=== PATIENT | female | born 1995 | race Caucasian/White ===

== ENCOUNTER → 2021-01-30 09:23 | Outpatient (CLI) | payer OTHER, SELFPAY ==
--- NOTE | 2021-01-30 09:24 | DI.US.S_ITS ---
PROCEDURE: US OB >= 14 WEEKS FETUS INDICATIONS: ANATOMY OUTSIDE/PRIOR DATING DATA: Last menstrual period (LMP): 09/13/20 . LMP-based estimated date of delivery (RELL): 06/20/21 . First dating scan (date and location): 01/30/21, current study . Estimated date of delivery (RELL) from first dating scan: 06/21/21 . TECHNIQUE: Real-time scanning was performed of the fetus, with image documentation and biometric measurements. Endovaginal scanning: Not performed COMPARISON: None. FINDINGS: General: A single living intrauterine gestation is present. Presentation: Vertex. Placenta: Placental position is anterior , without previa. Amniotic fluid index: 11.0 cm, normal range is 5-24 cm. heart rate: 133 beats per minute. Maternal cervical canal: 5.5 cm long. Normal lower limit is 2.5 cm. biometrics: Biparietal diameter: 4.4 cm, 19 weeks, two days Head circumference: 16.7 cm, 19 weeks, three days Abdominal circumference: 14.9 cm, 20 weeks, one day Femur length: 3.2 cm, 19 weeks, six days Estimated gestational age from initial scan: not applicable. Composite gestational age from present scan: 19 weeks, five days Estimated weight and percentile: 321 g, 49th percentile Measurement variability for biometric dating: +/- 7 days from 14 weeks to 15 weeks 6 days gestation, +/- 10 days from 16 weeks to 21 weeks 6 days gestation, +/- 2 weeks from 22 weeks to 27 weeks 6 days gestation, +/- 3 weeks for 28 weeks gestation or later. weight reference: 4500 g or EFW >90/95% is considered macrosomia or large for gestational age. EFW <10% is small for gestational age. EFW 5% or less is considered intra-uterine growth restriction. Anatomic survey: Neuro: Ventricles are non-dilated at less than 10 mm. Cisterna magna is normal at 3-11 mm. Cerebellum is normal in size and morphology. Nuchal skin fold: Normal at less than 6 mm between 14-21 weeks gestational age. Face: Nose and lips, facial profile are normal. Spine: No evidence for spina bifida. Heart: 4-chambered heart is present, with normal ventricular outflow tracts. Diaphragm: Diaphragm is intact. Stomach: Left-sided stomach is present. Kidneys: No hydronephrosis. Normal is less than 5 mm in 2nd trimester, less than 7 mm in 3rd trimester. Cord: 3-vessel cord has orthotopic insertion. Bladder: Normal in size. Extremities: All 4 extremities identified. IMPRESSION: 1. Single living intrauterine with composite gestational age in good agreement with the clinically assigned gestational age. 2. Symmetric growth and normal anatomy. Dictated by: Jocelyn Gray M.D. on 01/30/2021 at 14:14 Approved by: Jocelyn Gray M.D. on 01/30/2021 at 14:33
== END ==
PROVIDERS: Referring Provider Obstetrics & Gynecology; Visit Provider Obstetrics & Gynecology
DX: Z34.82 Encounter for supervision of other normal pregnancy, second trimester (principal)
CPT/HCPCS: 76811

== ENCOUNTER → 2021-03-09 07:49 | Outpatient (CLI) | payer OTHER, SELFPAY ==
[2021-03-09 10:21] LABS: Hematocrit 32.6 % (36-46); Hemoglobin 11.4 g/dL (12.0-16.0)
[2021-03-09 10:52] LABS: GTT (PREG) 1 Hour PP 50gm Dose 118 mg/dL (76-139)
== END ==
PROVIDERS: Referring Provider Obstetrics & Gynecology; Visit Provider Obstetrics & Gynecology
DX: Z34.82 Encounter for supervision of other normal pregnancy, second trimester (principal); Z3A.25 25 weeks gestation of pregnancy
CPT/HCPCS: 36415; 82950; 85014; 85018

== ENCOUNTER → 2021-05-24 10:56 | Outpatient (CLI) | payer OTHER, SELFPAY ==
[2021-05-25 17:17] LABS: Strep Grp B PCR NEG for Grp B Strep
== END ==
PROVIDERS: Referring Provider Obstetrics & Gynecology; Visit Provider Obstetrics & Gynecology
DX: Z34.83 Encounter for supervision of other normal pregnancy, third trimester (principal); Z3A.36 36 weeks gestation of pregnancy
CPT/HCPCS: 87653

== ENCOUNTER 2021-06-07 09:15 | Outpatient (CLI) | payer OTHER, SELFPAY | END 2021-06-07 09:55 | disposition home or self-care (01) | LOC: LABOR 09:42 → OB 06-12 07:31 | PROVIDERS: PCP Nurse Practitioner Family; Referring Provider Obstetrics & Gynecology; Visit Provider Obstetrics & Gynecology | DX: O36.8130 Decreased fetal movements, third trimester, not applicable or unspecified (principal); Z3A.38 38 weeks gestation of pregnancy | CPT/HCPCS: 59025; G0378; G0379 ==

== ENCOUNTER 2021-06-20 07:51 | Inpatient (IN) | payer OTHER, SELFPAY ==
[2021-06-20 09:10] LABS: COVID19 -Nasal RAPID Negative (Negative)
[2021-06-20 09:31] LABS: Add Manual Diff / Slide Review NO; Basophils Absolute Auto 0 /uL (0-100); Basophils Percent Auto 0.2 % (0-2); Eosinophils Absolute Auto 100 /uL (0-450); Eosinophils Percent Auto 0.7 % (2-4); Hematocrit 31.2 % (36-46); Hemoglobin 11.1 g/dL (12.0-16.0); Lymphocytes Absolute Auto 2100 /uL (1100-4500); Lymphocytes Percent Auto 18.5 % (25-40); Mean Corpuscular HGB Conc 35.6 % (30-36); Mean Corpuscular Hemoglobin 29.1 PG (26-34); Mean Corpuscular Volume 81.9 fL (80-100); Monocytes Absolute Auto 700 /uL (0-900); Monocytes Percent Auto 6.1 % (3-14); Neutrophils Absolute Auto 8600 /uL (1500-7000); Neutrophils Percent Auto 74.5 % (50-75); Platelet Count 237 X10^3/uL (150-400); Red Blood Cell Count 3.82 X10^6/uL (4.0-5.2); Red Cell Distribution Width 14.3 % (11.6-14.8); White Blood Cell Count 11.5 X10^3/uL (4.5-11.0)
[2021-06-20] MEDS: LACTATED RINGERS 1,000 ML 100 ML IV ×2 (09:34→15:34)
[2021-06-20] MEDS: OXYTOCIN PREMIX 30 UNIT/500 ML PLAST..BAG IV (09:38)
[2021-06-20 09:42] VITALS: BP 124/61
[2021-06-20 12:34] LABS: HIV 1 & 2 Ab/Ag 4th Gen Combo NEGATIVE (NEGATIVE)
--- NOTE | 2021-06-20 13:08 | PM.OBHP.1 ---
OB HPI Date/Time Date of admission: 06/20/21 Date Patient Seen: 06/20/21 Time Patient Seen: 09:00 History of Present Condition Chief complaint: INDUCTION : 2 Para: 1 Estimated Date of Delivery: 06/20/21 Estimated Gestational Age (weeks): 40 Narrative: Robson Taveras is a 26 year old female admitted for induction for family issues Indications Indication for induction OB: other (Family issues) History of Present care: good care, initiated at week # (9), number of visits (13) and pounds weight gain (30) Dating criteria: LMP confirmed by 1st trimester US Ultrasounds: normal mid trimester US Obstetrical complications: none Medical complications: none Preadmission Labs Blood type: A (+) positive -: Antibody screen: negative, GBS status: negative and HBsAG: negative -: Chlamydia screen: not detected and Gonorrhea screen: not detected -: Rubella: immune and Varicella: immune 1 hr GTT: 118 Prior (ies) History: 06/08/2015 41 week gestation 7 lb 4 oz female vaginal delivery with epidural Evaluation Evaluation Baseline heart rate: 130 Variability: Moderate (11-25) monitor accelerations: Present Monitor Decelerations: Absent Contraction Frequency (minutes): 10 Uterine Contraction Intensity: Mild Category of Tracing: Reactive Status: Category l Dilation (cm): 2 Effacement (%): 80 station: -2 Position of cervix: mid Consistency: soft [facility] Medical History (Updated 06/07/21 @ 10:42 by Kuldip Gomes MD) Healthy adult Surgical History (Updated 01/19/21 @ 15:12 by Brandi Arceo RN) [place] teeth extracted (~07/2019) Family History (Updated 01/19/21 @ 15:18 by Brandi Arceo RN) Mother Breast cancer Hyperlipidemia Father No problems noted. Grandmother No problems noted. Grandfather Pacemaker Heart disease Grandmother No problems noted. 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 ) current occupational exposures/hazards: No special yecenia needs: No seatbelt use: always do you feel safe at home: Yes Smoking Status: Never smoker second hand exposure: Yes ( vaping, but goes outside. ) alcohol intake: former (Pre-: Occasional, weekly to once a month. ) substance use type: does not use during the past year weight has: increased > 10 lbs well-balanced diet: daily or most days daily servings fruits/ve-4 caffeine: Yes (Momo tea. ) Type(s) of exercise: walking and running frequency: daily duration: 45-60 minutes/day Meds Home Medications and Allergies Home Medications Medication Instructions Recorded Confirmed Type prenat.vits,jade,tyc-[id number]-bnlrs 1 tab PO DAILY 01/19/21 06/20/21 History Double Electric breast Pump and #1 ea 04/17/21 06/20/21 Rx Supplies Allergies Allergy/AdvReac Type Severity Reaction Status Date / Time No Known Drug Allergies Allergy Verified 06/20/21 08:55 Review of Systems Review of Systems Narrative: Patient denies headaches, scotomata, epigastric pain. Good movement. No leakage of fluid. Mild contractions only. OB Exam Narrative Exam Narrative: Blood pressure 124/61, pulse of 89, temperature 97.6? HEENT exam within normal limits. Lungs are clear to auscultation percussion. Heart is regular rate and rhythm no S3-S4 murmurs. Abdomen is gravid and nontender. Fetus is vertex. Extremities without edema and nontender Objective Labs Result Diagrams: 06/20/21 09:10 Labs: Laboratory Results - last 24 hr 06/20/21 06/20/21 06/20/21 08:05 09:10 09:10 WBC 11.5 H RBC 3.82 L Hgb 11.1 L Hct 31.2 L MCV 81.9 MCH 29.1 MCHC 35.6 RDW 14.3 Plt Count 237 Neut % (Auto) 74.5 Lymph % (Auto) 18.5 L [place] % (Auto) 6.1 Eos % (Auto) 0.7 L Baso % (Auto) 0.2 Neut # (Auto) 8600 H Lymph # (Auto) 2100 [place] # (Auto) 700 Eos # (Auto) 100 Baso # (Auto) 0 SARS-CoV-2 (PCR) Negative HIV 1&2 Ab/P24 Ag 4thGn Blood Type A Positive Antibody Screen Negative 06/20/21 09:10 WBC RBC Hgb Hct MCV MCH MCHC RDW Plt Count Neut % (Auto) Lymph % (Auto) [place] % (Auto) Eos % (Auto) Baso % (Auto) Neut # (Auto) Lymph # (Auto) [place] # (Auto) Eos # (Auto) Baso # (Auto) SARS-CoV-2 (PCR) HIV 1&2 Ab/P24 Ag 4thGn Negative Blood Type Antibody Screen Assessment and Plan Assessment and Plan Assessment and Plan narrative: Term admitted for Pitocin induction due to family issues. Patient will be started on Pitocin. Epidural catheter when requested. Anticipate vaginal delivery. Time Spent with Patient Total time spent with greater than 50% in coordination of care (as documented) at patient's floor/unit and/or counseling patient:: less than 15 minutes
[2021-06-20] MEDS: ONDANSETRON 4 MG/2 ML INJ IV (18:05)
--- NOTE | 2021-06-20 19:12 | P.PCNOB_ITS ---
Events: Labor Induction (Family issues) Labor & Delivery Delivery date: 06/20/21 Intrapartal Events: None Cervical ripening method: none Induction method: per pitocin protocol Delivery monitor: external FHT and external uterine Route of delivery: L&D Laceration Description: None Estimated blood loss (mL): 100 Anesthesia Type: Epidural Narrative: Patient arrived on Labor and delivery for induction for family issues. She was started on Pitocin. She was AROMed for clear fluid. She received an epidural catheter for pain control. heart tones category 1 to category 2 throughout labor. Patient delivered spontaneously, over an intact perineum. The viable female infant was placed on the maternal abdomen. After the cord stopped pulsating the cord was clamped, cut, and cord bloods obtained. The placenta delivered spontaneously, intact, with 3 vessels. There were no cervical, vaginal, or perineal tears. [place] Baby 1: Infant gender: Female Presentation: vertex Position: Occiput Posterior Placenta delivery description: Spontaneous Cord Vessel Description: 3 Vessels score (1 min): 9 score (5 min): 9 weight: 7 lb 10 oz Plan for aftercare: Routine care
[2021-06-21] MEDS: IBUPROFEN 600 MG TABLET PO ×3 (00:10→16:05)
[2021-06-21 02:36] LABS: RPR Screen Non Reactive (Non Reactive)
[2021-06-21 07:49] LABS: Add Manual Diff / Slide Review NO; Basophils Absolute Auto 0 /uL (0-100); Basophils Percent Auto 0.3 % (0-2); Eosinophils Absolute Auto 100 /uL (0-450); Eosinophils Percent Auto 0.6 % (2-4); Hematocrit 30.8 % (36-46); Hemoglobin 10.9 g/dL (12.0-16.0); Lymphocytes Absolute Auto 2900 /uL (1100-4500); Lymphocytes Percent Auto 20.6 % (25-40); Mean Corpuscular HGB Conc 35.2 % (30-36); Mean Corpuscular Volume 82.4 fL (80-100); Monocytes Absolute Auto 1000 /uL (0-900); Monocytes Percent Auto 6.7 % (3-14); Neutrophils Absolute Auto 10300 /uL (1500-7000); Neutrophils Percent Auto 71.8 % (50-75); Platelet Count 239 X10^3/uL (150-400); Red Blood Cell Count 3.74 X10^6/uL (4.0-5.2); Red Cell Distribution Width 14.3 % (11.6-14.8); White Blood Cell Count 14.3 X10^3/uL (4.5-11.0)
[2021-06-21] MEDS: FERROUS SULFATE 325 MG TABLET PO (09:28)
--- NOTE | 2021-06-21 13:11 | PM.OBDS.1 ---
Discharge Providers Provider Date of admission: 06/20/21 07:51 Discharge Date: 06/21/21 Primary care physician: JAYJAY Seymour Consults: 06/20/21 08:12 Consult to Anesthesiology Urgent Comment: Consulting Provider: Anesthesiologist Reason for consultation: Epidural Has provider been notified: No 06/21/21 19:10 Consult to Multifocal Button Grinder Routine Comment: Discharge provider: Elida Shukla MD Summary Hospital Course Date Patient Seen: 06/21/21 Time Patient Seen: 13:11 Diagnoses: 39 week gestation status post spontaneous vaginal delivery Hospital Course: Patient arrived on Labor and delivery for induction for family concerns. Patient was started on Pitocin and received an epidural catheter for pain control. She had a spontaneous vaginal delivery of a viable female . She is urinating and ambulating well. Tolerating regular diet. Breast-feeding without difficulty. Peripartum Data Infant Delivery Method: Natural Vaginal Laceration Description: None Procedures: Pitocin induction, epidural catheter, spontaneous vaginal delivery complications: none 1: Gender: Female Disposition of : home Discharge Diagnosis (1) Vaginal delivery: Status: Acute Status at Discharge Cognitive/behavioral status at discharge: oriented Functional status at discharge: independent ambulation Overall status at discharge: patient is progressing back to baseline Time Spent with Patient Time attestation: Total time spent providing and/or coordinating discharge services: Time spent: Less than 30 minutes Objective Labs Result Diagrams: 06/21/21 06:53 Labs: Laboratory Results - last 24 hr 06/20/21 06/21/21 09:10 06:53 WBC 14.3 H RBC 3.74 L Hgb 10.9 L Hct 30.8 L MCV 82.4 MCH 29.0 MCHC 35.2 RDW 14.3 Plt Count 239 Neut % (Auto) 71.8 Lymph % (Auto) 20.6 L [place] % (Auto) 6.7 Eos % (Auto) 0.6 L Baso % (Auto) 0.3 Neut # (Auto) 79759 H Lymph # (Auto) 2900 [place] # (Auto) 1000 H Eos # (Auto) 100 Baso # (Auto) 0 Serum VDRL Non reactive Exam Vital Signs (past 8 hours): Blood pressure 108/55, pulse 68, temperature 97.6? Abdomen is soft, nontender. Uterus is firm, at U, nontender. Perineum was intact. Mild lochia. Extremities without edema and nontender. Patient is Rh positive, rubella immune, received Tdap in the 3rd trimester. Discharge Plan Discharge Plan Patient Disposition: Home Provider Discharge Comment: Patient to take vitamins and her extra iron Discharge orders & Medications Prescriptions: Continued (DME) Double Electric breast Pump and Supplies See Rx Instructions .ROUTE .MEDSUPPLY Qty: 1 0RF Rx Instructions: Use electric breast pump and supplies as directed for 99 months. RELL 06/20/2021. prenat.vits,jade,[id number] Tablet 1 tab PO DAILY 0RF Follow up/Referrals: Elida Shukla MD [Physician] - (Your 4 week follow up appointment is scheduled for July 31 @ 8:30am with Dr. Shukla.) Diet/Activity/Treatments Diet: Regular Activity: Nothing in vagina for 4 weeks Skin/Wound/Dressing Care Report to your healthcare provider any signs of infection, such as:: chills, fever and increased pain Visit Report/Discharge Packet Stand Alone Forms: Discharge: Care Discharge Data Primary Care Provider: Micheline Hernandez
[2021-06-21 17:42] VITALS: BP 117/60; PULSE 74; RESP 16; TEMP 36.3
== END 2021-06-21 20:00 | disposition home or self-care (01) | DRG 807 ==
PROVIDERS: Admitting Provider Specialist; PCP Nurse Practitioner Family; Referring Provider Specialist; Visit Provider Specialist
DX: O76 Abnormality in fetal heart rate and rhythm complicating labor and delivery (principal); Z37.0 Single live birth; Z3A.40 40 weeks gestation of pregnancy; Z20.822 Contact with and (suspected) exposure to COVID-19
CPT/HCPCS: 01967; 36415; 59050; 59400; 59409; 85025; 86592; 86850; 86900; 86901; 87389; 87635; C9803; G0379; J2405; J2590